=== PATIENT | female | born 1955 | race Caucasian/White ===

== ENCOUNTER 2016-08-13 20:59 | Emergency (ER) | payer MEDICAID ==
--- NOTE | 2016-08-15 13:17 | ER ---
ADMIT: 08/13/2016 RM/LOC: ER [facility] MR#: [id number] [facility] [address] [place] [id number] RICH VELEZ [address] [facility] [address] [place] [address] Emergency Room Report SEX: F AGE: 60 : 1955 DATE: 08/13/2016 CHIEF COMPLAINT: Today, shortness of breath. HISTORY OF PRESENT ILLNESS: This is a pleasant 60-year-old female, who presents to the emergency room complaining of shortness of breath for the past 3 days. The patient states she has a significant history of asthma and COPD. She continues to smoke half a pack per day. The patient states she does not really know what started this event. Denies any worsening of seasonal allergies or recent upper respiratory illness. She continues to use her medications as prescribed. These include Symbicort, Proventil, Singulair, and albuterol nebulizers. The patient states she has been using her nebulizers medications and feels like they are just not working for her anymore. Patient states the shortness of breath is exacerbated by exertion, lying flat, and coughing. She denies any recent fever, chills, racing heart, or leg swelling. She does admit to some chest pain secondary to her coughing. She denies any increase in the sputum production. She just has a scant amount of clear phlegm when she coughs. The patient states she has had these symptoms previously, she was on a prednisone taper about a month ago. COURSE IN THE EMERGENCY ROOM: Patient was seen and examined. Lungs overall sounded fairly clear. There were some faint wheezes in the bases. She was moving air well. She was given a DuoNeb treatment, which patient states did feel like she relieved some of the tightness in her chest. She was also given 40 mg of prednisone p.o. she was provided. IMPRESSION: 1. Acute exacerbation of asthma. 2. Chronic obstructive pulmonary disease. DISPOSITION: Patient was given a script for prednisone 40 mg x5 days. She was also encouraged to follow up with Dr. Douglas as needed if she felt like her medications needed change. She was to continue using her home medications as prescribed. Questions were sought and answered to the best of our ability and to the patient's satisfaction. She was discharged from the department in stable condition. MARLA Coronel / Sudeep Chawla MD / lu JOB #: [id number] CC: Sudeep Chawla MD, Attending Physician Kwesi Douglas MD, Family Physician
== END 2016-08-13 22:18 | disposition home or self-care (01) ==
LOC: ER 20:59
DX: J44.9 Chronic obstructive pulmonary disease, unspecified (principal); J45.901 Unspecified asthma with (acute) exacerbation; F17.210 Nicotine dependence, cigarettes, uncomplicated; Z88.1 Allergy status to other antibiotic agents; Z79.899 Other long term (current) drug therapy